=== PATIENT | female | born 1965 | race Caucasian/White ===

== ENCOUNTER 2017-03-19 21:09 | Emergency (ER) | payer SELFPAY ==
[~2017-03-19 21:09] MED LIST: SYN.05 PO
--- NOTE | 2017-03-19 21:58 | NUR ---
PATIENT LEFT WITHOUT BEING SEEN BY DR. RODRIGUEZ. NO FURTHER CARE PROVIDED FOR PATIENT.
== END 2017-03-19 21:58 | disposition left against medical advice (07) ==
LOC: MED 21:09
DX: R10.9 Unspecified abdominal pain (principal); Z53.21 Procedure and treatment not carried out due to patient leaving prior to being seen by health care provider

== ENCOUNTER 2021-04-23 19:21 | Emergency (ER) | payer OTHER ==
[~2021-04-23] VITALS: Ht 160 cm; Wt 85.7 kg
[2021-04-23 19:53] VITALS: BP 145/72
[2021-04-23] MEDS ORDERED: IBUP-1842 PO (20:50)
[2021-04-23] MEDS ORDERED: LORA1T1237 PO (20:50)
== END 2021-04-23 20:57 | disposition home or self-care (01) ==
LOC: MED 19:21
DX: H92.02 Otalgia, left ear (principal); R09.81 Nasal congestion; E07.9 Disorder of thyroid, unspecified; Z79.899 Other long term (current) drug therapy; Z88.0 Allergy status to penicillin; Z98.890 Other specified postprocedural states
CPT/HCPCS: 99282

== ENCOUNTER 2021-09-07 10:21 | Emergency (ER) | payer OTHER ==
[~2021-09-07] VITALS: Ht 160 cm; Wt 82.6 kg
[~2021-09-07 10:21] MED LIST changes: +IBUP-1842 PO; +LORA1T1237 PO
[2021-09-07 10:26] VITALS: BP 132/51
--- NOTE | 2021-09-07 10:49 | NUR ---
56 Y/O F BIB SELF FROM HOME, PATIENT PRESENTS TO ED WITH LLQ ABD PAIN THAT INCREASES WITH MOVEMENT, FOR 2 DAYS, WORSENED THIS MORNING. PT STATES SHE HAS HAD DIVERTICULITIS IN THE PAST, LAST EXACERBATION WAS LAST MONTH AND GIVEN ANTIBIOTICS. DENIES N/V/D; SKIN IS PINK/WARM/DRY; AAOX4 WITH EVEN AND STEADY GAIT; LUNGS CLEAR BL; HR EVEN AND REGULAR; BOWEL SOUNDS NORMOACTIVE X4 FLAT/SOFT/NONTENDER, PT DENIES ANY FEVER, CP, SOB, OR COUGH AT THIS TIME; PATIENT STATES PAIN OF 8/10 AT THIS TIME; VSS; PATIENT POSITIONED FOR COMFORT; HOB ELEVATED; BEDRAILS UP X2; BED DOWN. ER MD MADE AWARE OF PT STATUS. PMH: DIVERTICULITIS ALLERGY: PENICILLIN (ITCHING)
[2021-09-07] MEDS ORDERED: ONDANSETRON 4 MG/2 ML VIAL IVP ONE ×2 (10:50→16:00)
[2021-09-07] MEDS ORDERED: NACL 0.9% 1,000 ML IV ONE (10:50)
[2021-09-07] MEDS ORDERED: KETOROLAC 15 MG/ML VIAL IVP ONE (10:50)
[2021-09-07 11:14] LABS: BASOPHILS % (AUTO) 0.4 % (0.0-2.0); EOSINOPHILS % (AUTO) 0.2 % (0.0-4.0); HEMATOCRIT 39.8 % (36-48); HEMOGLOBIN 13.4 g/dL (12.0-16.0); LYMPHOCYTES # (AUTO) 1.3 K/uL (2.5-16.5); LYMPHOCYTES % (AUTO) 13.4 % (20.5-51.1); MEAN CORPUSCULAR HEMOGLOBIN 32 pg (27-31); MEAN CORPUSCULAR HGB CONC 34 g/dL (33-37); MEAN CORPUSCULAR VOLUME 95.6 fL (80-94); MONOCYTES # (AUTO) 0.6 K/uL (0.8-1.0); MONOCYTES % (AUTO) 5.7 % (1.7-9.3); NEUTROPHILS # (AUTO) 7.8 K/uL (1.8-7.7); NEUTROPHILS % (AUTO) 80.3 % (42.2-75.2); PLATELET COUNT (AUTO) 207 K/uL (140-450); RED BLOOD CELL COUNT(AUTO) 4.17 MIL/uL (4.20-5.40); RED CELL DISTRIBUTION WIDTH 12.4 % (11.6-13.7); WHITE BLOOD COUNT (AUTO) 9.7 K/uL (4.8-10.8)
[2021-09-07 11:40] LABS: ALBUMIN 3.7 g/dL (3.4-5.0); ANION GAP 11.3 (8-16); CARBON DIOXIDE 26.3 mmol/L (21-32); CREATININE 0.6 mg/dL (0.6-1.3); POTASSIUM 3.6 mmol/L (3.5-5.1); TOTAL BILIRUBIN 0.6 mg/dL (0.0-1.0)
--- NOTE | 2021-09-07 12:10 | NUR ---
PT TAKEN TO CT VIA WHEELCHAIR
[2021-09-07] MEDS ORDERED: metroNIDAZOLE 500 MG/NS PREMIX 100 ML IV ONE (13:30)
[2021-09-07] MEDS ORDERED: LEVOFLOXACIN 750 MG/D5W PREMIX 150 ML IV ONE (13:30)
[2021-09-07] MEDS ORDERED: MORPHINE SULFATE 4 MG/ML SYR IVP ONE (16:00)
--- NOTE | 2021-09-07 17:07 | NUR ---
Patient to be transferred to [facility]. Is being transferred due to HIGHER LEVEL OF CARE/INSURANCE. Receiving facility has accepting physician and available space. ER physician has signed transfer form. Patient or responsible democrat has agreed to transfer and signed form. Patient belongings inventoried and will be sent with patient. Copy of nursing notes, lab reports, EKG, Physicians Orders and X-rays to be sent with patient. Report called to YANIRA MARTINEZ at receiving facility. [facility] ambulance service has been called for transfer. ETA is 1730.
--- NOTE | 2021-09-07 19:16 | NUR ---
Pt report given to UZMA MARTINEZ. Transfer of care at this time.
--- NOTE | 2021-09-07 19:25 | NUR ---
[facility] AT BEDSIDE.
[2021-09-07 19:27] VITALS: BP 118/54
--- NOTE | 2021-09-07 19:27 | NUR ---
Patient to be transferred to [facility]. Is being transferred due to INSURANCE REQUEST. Receiving facility has accepting physician and available space. ER physician has signed transfer form. Patient or responsible constitution party has agreed to transfer and signed form. Patient belongings inventoried and will be sent with patient. Copy of nursing notes, lab reports, EKG, Physicians Orders and X-rays to be sent with patient. Report called to JUAN DOYLE at receiving facility.
== END 2021-09-07 19:27 | disposition short-term general hospital (02) ==
LOC: MED 10:21
DX: K57.92 Diverticulitis of intestine, part unspecified, without perforation or abscess without bleeding (principal); R11.0 Nausea; E05.90 Thyrotoxicosis, unspecified without thyrotoxic crisis or storm; Z98.890 Other specified postprocedural states; Z88.0 Allergy status to penicillin; Z79.899 Other long term (current) drug therapy
CPT/HCPCS: 36415; 74177; 80053; 81002; 83690; 85025; 96361; 96365; 96366; 96367; 96375; 96376; 99285; J1885; J1956; J2270; J2405; J3490; J7030; Q9967

== ENCOUNTER 2022-07-04 16:09 | Emergency (ER) | payer MEDICAID ==
[~2022-07-04] VITALS: Ht 160 cm; Wt 85.3 kg
[2022-07-04 16:13] VITALS: BP 152/89
[2022-07-04] MEDS ORDERED: KETOROLAC 60 MG/2 ML VIAL IM ONE (18:30)
[2022-07-04 19:18] LABS: APPEARANCE,URINE SL CLOUDY (CLEAR); BILIRUBIN,URINE NEGATIVE (NEGATIVE); BLOOD, URINE NEGATIVE (NEGATIVE); COLOR,URINE YELLOW (YELLOW); LEUKOCYTE ESTERASE ,URINE 1+ (NEGATIVE); NITRITE, URINE NEGATIVE (NEGATIVE); UGLUCOSE NEGATIVE (NEGATIVE)
[2022-07-04 19:31] LABS: OTHER CASTS, URINE None Seen /LPF (None Seen); RBC,URINE 0-5 /HPF (0-5)
[2022-07-04] MEDS ORDERED: NITR100C7 PO (20:06)
== END 2022-07-04 20:08 | disposition home or self-care (01) ==
LOC: MED 16:09
DX: N39.0 Urinary tract infection, site not specified (principal); E03.9 Hypothyroidism, unspecified; Z90.89 Acquired absence of other organs
CPT/HCPCS: 81001; 87086; 96372; 99283; J1885

== ENCOUNTER 2022-07-13 09:39 | Emergency (ER) | payer MEDICAID ==
[~2022-07-13] VITALS: Ht 160 cm; Wt 85.3 kg
[~2022-07-13 09:39] MED LIST changes: +NITR100C7 PO
[2022-07-13 10:00] VITALS: BP 129/67
--- NOTE | 2022-07-13 10:06 | NUR ---
pt ambulated to bathroom with steady gait
--- NOTE | 2022-07-13 10:30 | NUR ---
DR ROMAN AT BEDSIDE FOR EVAL
[2022-07-13] MEDS ORDERED: MORPHINE SULFATE 2 MG/ML SYR IM STA (10:31)
[2022-07-13] MEDS ORDERED: KETOROLAC 30 MG/ML VIAL IM ONE (10:40)
--- NOTE | 2022-07-13 10:50 | NUR ---
56/F PRESENTS TO ED WITH C/O LLQ PAIN AND NAUSEA SINCE YESTERDAY. PATIENT REPORTS HX OF DIVERTICULITIS AND BELIEVES IT MAY BE RELATED TO HER SYMPTOMS. PATIENT DENIES VOMITING, DIARRHEA, CONSTIPATION, URINARY SYMPTOMS OR FEVERS. DENIES TAKING MEDICATION FOR PAIN.
[2022-07-13 11:05] LABS: BASOPHILS # (AUTO) 0.1 K/uL (0.00-0.22); BASOPHILS % (AUTO) 0.6 % (0.0-2.0); EOSINOPHILS # (AUTO) 0.1 K/uL (0-0.4); EOSINOPHILS % (AUTO) 0.9 % (0.0-4.0); HEMATOCRIT 37.8 % (36-48); HEMOGLOBIN 12.8 g/dL (12.0-16.0); LYMPHOCYTES # (AUTO) 2.4 K/uL (2.5-16.5); LYMPHOCYTES % (AUTO) 28.2 % (20.5-51.1); MEAN CORPUSCULAR HEMOGLOBIN 32 pg (27-31); MEAN CORPUSCULAR HGB CONC 34 g/dL (33-37); MEAN CORPUSCULAR VOLUME 93.9 fL (80-94); MONOCYTES # (AUTO) 0.6 K/uL (0.8-1.0); MONOCYTES % (AUTO) 7.3 % (1.7-9.3); NEUTROPHILS # (AUTO) 5.3 K/uL (1.8-7.7); PLATELET COUNT (AUTO) 212 K/uL (140-450); RED BLOOD CELL COUNT(AUTO) 4.03 MIL/uL (4.20-5.40); RED CELL DISTRIBUTION WIDTH 12.7 % (11.6-13.7); WHITE BLOOD COUNT (AUTO) 8.5 K/uL (4.8-10.8)
[2022-07-13 11:09] LABS: APPEARANCE,URINE CLEAR (CLEAR); BILIRUBIN,URINE NEGATIVE (NEGATIVE); BLOOD, URINE NEGATIVE (NEGATIVE); COLOR,URINE YELLOW (YELLOW); LEUKOCYTE ESTERASE ,URINE NEGATIVE (NEGATIVE); NITRITE, URINE NEGATIVE (NEGATIVE); UGLUCOSE NEGATIVE (NEGATIVE)
[2022-07-13 12:01] LABS: ALBUMIN 3.4 g/dL (3.4-5.0); ANION GAP 14.6 (8-16); CREATININE 0.7 mg/dL (0.6-1.3); POTASSIUM 3.6 mmol/L (3.5-5.1); TOTAL BILIRUBIN 0.6 mg/dL (0.0-1.0)
[2022-07-13] MEDS ORDERED: CIPR500T9 PO (12:10)
[2022-07-13] MEDS ORDERED: METR-435 PO (12:10)
[2022-07-13] MEDS ORDERED: ACET-9527 PO (12:11)
[2022-07-13] MEDS ORDERED: MAG355OR2 PO (12:11)
[2022-07-13 12:35] VITALS: BP 143/77
--- NOTE | 2022-07-13 12:35 | NUR ---
Patient discharged with v/s stable. Written and verbal after care instructions given and explained. Patient alert, oriented and verbalized understanding of instructions. Ambulatory with steady gait. All questions addressed prior to discharge. ID band removed. Patient advised to follow up with PMD. Rx of NORCO 5-325, CIPROFLOXACIN, MAALOX AND METRONIDAZOLE given. Patient educated on indication of medication including possible reaction and side effects. Opportunity to ask questions provided and answered. EDUCATED ON USE OF NARCOTICS, ADVISED TO NOT DRINK OR DRIVE WHILE USING, PATIENT VERBALIZED UNDERSTANDING.
== END 2022-07-13 12:35 | disposition home or self-care (01) ==
LOC: MED 09:39
DX: K57.92 Diverticulitis of intestine, part unspecified, without perforation or abscess without bleeding (principal); E07.9 Disorder of thyroid, unspecified; Z79.899 Other long term (current) drug therapy; Z88.0 Allergy status to penicillin
CPT/HCPCS: 36415; 74176; 80053; 81003; 81025; 85025; 96372; 99284; J1885; J2270

== ENCOUNTER 2022-09-28 16:26 | Emergency (ER) | payer SELFPAY ==
[~2022-09-28] VITALS: Ht 171.7 cm; Wt 85.0 kg
[~2022-09-28 16:26] MED LIST changes: +ACET-9527 PO; +CIPR500T9 PO; +MAG355OR2 PO; +METR-435 PO
[2022-09-28 17:10] VITALS: BP 144/79
--- NOTE | 2022-09-28 17:30 | NUR ---
C/O NAUSEA,8/10 LUQ ABDOMINAL PAIN X 2 DAYS. SEEN HERE 16 DAYS AGO FOR DIVERTICULITIS WITHOUT ABSCESS OR PERFORATION. PMH: THYROID, DIVERTICULITIS
--- NOTE | 2022-09-28 19:47 | NUR ---
PT TAKEN TO BED 6
--- NOTE | 2022-09-28 20:06 | NUR ---
IV started bloodwork obtained, handed to CPT Zulma at bedside.
[2022-09-28 20:15] LABS: BASOPHILS % (AUTO) 0.4 % (0.0-2.0); EOSINOPHILS # (AUTO) 0.1 K/uL (0-0.4); EOSINOPHILS % (AUTO) 0.9 % (0.0-4.0); HEMATOCRIT 38.5 % (36-48); HEMOGLOBIN 13.3 g/dL (12.0-16.0); LYMPHOCYTES # (AUTO) 3.6 K/uL (2.5-16.5); LYMPHOCYTES % (AUTO) 35.3 % (20.5-51.1); MEAN CORPUSCULAR HEMOGLOBIN 32 pg (27-31); MEAN CORPUSCULAR HGB CONC 35 g/dL (33-37); MEAN CORPUSCULAR VOLUME 93.5 fL (80-94); MONOCYTES # (AUTO) 0.8 K/uL (0.8-1.0); MONOCYTES % (AUTO) 7.6 % (1.7-9.3); NEUTROPHILS # (AUTO) 5.6 K/uL (1.8-7.7); NEUTROPHILS % (AUTO) 55.8 % (42.2-75.2); PLATELET COUNT (AUTO) 219 K/uL (140-450); RED BLOOD CELL COUNT(AUTO) 4.12 MIL/uL (4.20-5.40); RED CELL DISTRIBUTION WIDTH 13.2 % (11.6-13.7); WHITE BLOOD COUNT (AUTO) 10.1 K/uL (4.8-10.8)
[2022-09-28 20:32] LABS: APPEARANCE,URINE CLEAR (CLEAR); BILIRUBIN,URINE NEGATIVE (NEGATIVE); BLOOD, URINE NEGATIVE (NEGATIVE); COLOR,URINE YELLOW (YELLOW); LEUKOCYTE ESTERASE ,URINE NEGATIVE (NEGATIVE); NITRITE, URINE NEGATIVE (NEGATIVE); UGLUCOSE NEGATIVE (NEGATIVE)
[2022-09-28 20:42] LABS: ALBUMIN 3.5 g/dL (3.4-5.0); ANION GAP 14.7 (8-16); CREATININE 0.7 mg/dL (0.6-1.3); POTASSIUM 3.7 mmol/L (3.5-5.1); TOTAL BILIRUBIN 0.3 mg/dL (0.0-1.0)
[2022-09-28] MEDS ORDERED: KETOROLAC 30 MG/ML VIAL IVP ONE (21:10)
--- NOTE | 2022-09-28 21:21 | NUR ---
PT TAKEN TO CT
--- NOTE | 2022-09-28 21:34 | NUR ---
Patient returned from imaging.
[2022-09-28] MEDS ORDERED: SULF-59 PO (22:27)
[2022-09-28] MEDS ORDERED: METR-435 PO (22:28)
--- NOTE | 2022-09-28 22:36 | NUR ---
Dr. Pulliam examining patient.
[2022-09-28 23:18] VITALS: BP 132/82
--- NOTE | 2022-09-28 23:18 | NUR ---
Patient discharged with v/s stable. Written and verbal after care instructions given and explained for Diverticullitis. Patient alert, oriented and verbalized understanding of instructions. Ambulatory with steady gait. All questions addressed prior to discharge. ID band removed. Patient advised to follow up with PMD. Rx of Metronidazole and Bactrim given. Patient educated on indication of medication including possible reaction and side effects. Opportunity to ask questions provided and answered.
== END 2022-09-28 23:18 | disposition home or self-care (01) ==
LOC: MED 16:26
DX: K57.92 Diverticulitis of intestine, part unspecified, without perforation or abscess without bleeding (principal); E07.9 Disorder of thyroid, unspecified; Z79.899 Other long term (current) drug therapy; Z88.0 Allergy status to penicillin
CPT/HCPCS: 36415; 74177; 80053; 81003; 81025; 83690; 85025; 96374; 99285; J1885; Q9967

== ENCOUNTER 2023-03-06 11:08 | Emergency (ER) | payer MEDICAID ==
[~2023-03-06] VITALS: Ht 162.6 cm; Wt 79.4 kg
[~2023-03-06 11:08] MED LIST changes: +SULF-59 PO
[2023-03-06 11:32] VITALS: BP 116/68
[2023-03-06 12:01] LABS: BASOPHILS % (AUTO) 0.5 % (0.0-2.0); EOSINOPHILS # (AUTO) 0.1 K/uL (0-0.4); EOSINOPHILS % (AUTO) 1.4 % (0.0-4.0); HEMOGLOBIN 12.9 g/dL (12.0-16.0); LYMPHOCYTES # (AUTO) 2.6 K/uL (2.5-16.5); LYMPHOCYTES % (AUTO) 35.6 % (20.5-51.1); MEAN CORPUSCULAR HEMOGLOBIN 32 pg (27-31); MEAN CORPUSCULAR HGB CONC 34 g/dL (33-37); MEAN CORPUSCULAR VOLUME 94.5 fL (80-94); MONOCYTES # (AUTO) 0.6 K/uL (0.8-1.0); MONOCYTES % (AUTO) 8.8 % (1.7-9.3); NEUTROPHILS # (AUTO) 3.9 K/uL (1.8-7.7); NEUTROPHILS % (AUTO) 53.7 % (42.2-75.2); PLATELET COUNT (AUTO) 238 K/uL (140-450); RED BLOOD CELL COUNT(AUTO) 4.02 MIL/uL (4.20-5.40); RED CELL DISTRIBUTION WIDTH 12.9 % (11.6-13.7); WHITE BLOOD COUNT (AUTO) 7.2 K/uL (4.8-10.8)
--- NOTE | 2023-03-06 12:18 | NUR ---
AMB TO BED 3
[2023-03-06 12:42] LABS: ALBUMIN 3.6 g/dL (3.4-5.0); ANION GAP 13.2 (8-16); CARBON DIOXIDE 27.5 mmol/L (21-32); CREATININE 0.7 mg/dL (0.6-1.3); POTASSIUM 3.7 mmol/L (3.5-5.1); TOTAL BILIRUBIN 0.4 mg/dL (0.0-1.0)
[2023-03-06] MEDS ORDERED: KETOROLAC 30 MG/ML VIAL IM ONE (12:55)
[2023-03-06 15:12] LABS: BILIRUBIN,URINE NEGATIVE (NEGATIVE); BLOOD, URINE NEGATIVE (NEGATIVE); COLOR,URINE YELLOW (YELLOW); LEUKOCYTE ESTERASE ,URINE 1+ (NEGATIVE); NITRITE, URINE NEGATIVE (NEGATIVE); UGLUCOSE NEGATIVE (NEGATIVE)
[2023-03-06 15:40] LABS: APPEARANCE,URINE HAZY (CLEAR)
[2023-03-06 15:46] LABS: CALCIUM OXALATE CRYSTALS,UR 30-50 /HPF (None Seen); RBC,URINE NONE SEEN /HPF (0-5); WBC,URINE NONE SEEN /HPF (0-5)
[2023-03-06 15:58] VITALS: BP 128/63
[2023-03-06] MEDS ORDERED: IBUP-2213 PO (16:16)
[2023-03-06] MEDS ORDERED: CIPR500T4 PO (16:16)
[2023-03-06] MEDS ORDERED: METR-435 PO (16:16)
== END 2023-03-06 13:05 | disposition home or self-care (01) ==
LOC: MED 11:08
DX: K57.32 Diverticulitis of large intestine without perforation or abscess without bleeding (principal); E03.9 Hypothyroidism, unspecified; Z79.2 Long term (current) use of antibiotics; Z79.891 Long term (current) use of opiate analgesic; Z79.1 Long term (current) use of non-steroidal anti-inflammatories (NSAID); Z79.899 Other long term (current) drug therapy; Z88.0 Allergy status to penicillin
CPT/HCPCS: 36415; 74177; 80053; 81001; 83690; 85025; 87086; 96372; 99285; J1885; Q9967

== ENCOUNTER 2023-04-28 15:53 | Emergency (ER) | payer MEDICAID ==
[~2023-04-28] VITALS: Ht 160 cm; Wt 82.6 kg
[~2023-04-28 15:53] MED LIST changes: +CIPR500T4 PO; +IBUP-2213 PO
[2023-04-28 16:21] VITALS: BP 158/80
--- NOTE | 2023-04-28 16:47 | NUR ---
Patient discharged with v/s stable. Written and verbal after care instructions FOR JOINT PAIN given and explained. Patient verbalized understanding. Ambulatory with steady gait. All questions addressed prior to discharge. Advised to follow up with PMD.
== END 2023-04-28 16:47 | disposition home or self-care (01) ==
LOC: MED 15:53
DX: M79.601 Pain in right arm (principal); M79.602 Pain in left arm; R03.0 Elevated blood-pressure reading, without diagnosis of hypertension; Z88.0 Allergy status to penicillin; Z79.899 Other long term (current) drug therapy
CPT/HCPCS: 99282